=== PATIENT | male | born 1950 | race Caucasian/White ===

== ENCOUNTER 2018-04-05 05:37 | Inpatient (IN) ==
[2018-04-05] MEDS ORDERED: Dextrose 50% in Water 50 ML Vial IV.PUSH PRN ×2 (06:42→12:16)
[2018-04-05] MEDS ORDERED: Insulin Regular (For Infusion) 100 UNIT in Sodium Chlor 0.9% Inj 99 ML IV.CONT PRN ×2 (06:42→12:16)
[2018-04-05] MEDS ORDERED: ceFAZolin 1 GM Premix Inj 0 GM/0 ML PIGGYBACK IV.SIG ONE (06:44)
[2018-04-05] MEDS ORDERED: Heparin - SQ 10,000 UNITS/ML Vial ONE ×2 (06:45)
[2018-04-05] MEDS ORDERED: MethylPREDNISolone Sod Succinate Inj 125 MG/2 ML Vial ONE (06:45)
[2018-04-05] MEDS ORDERED: Sodium Chloride 0.9% Irr Bot 500 ML, ceFAZolin Inj 500 MG IRRIGATION SCH ×2 (06:45)
[2018-04-05] MEDS ORDERED: Sodium Chlor 0.9% Inj 77.5 ML, Papaverine Inj 60 MG, Nitroglycerin Inj 100 MCG, dilTIAZ... IRRIGATION SCH ×3 (06:45)
[2018-04-05] MEDS ORDERED: Chlorhexidine 4% Topical 120 APPLIC/120 ML Bottle TOPICAL SCH (06:45)
[2018-04-05] MEDS ORDERED: ceFAZolin 2 GM Premix Inj 2 GM/50 ML PIGGYBACK IV.SIG SCH (07:00)
[2018-04-05] MEDS ORDERED: fentaNYL Citrate Inj 250 MCG/5 ML Ampul ONE (07:04)
[2018-04-05] MEDS ORDERED: Midazolam Inj 5 MG/ML 1 ML Vial ONE (07:04)
[2018-04-05] MEDS ORDERED: Chlorhexidine Gluconate 2% 1 Pack (2 Cloths) TOPICAL ONE (07:15)
[2018-04-05] MEDS ORDERED: Metoprolol Tartrate 25 MG Tablet PO ONE (07:15)
[2018-04-05] MEDS ORDERED: Sodium Chlor 0.9% Inj 500 ML IV.CONT ONE (07:15)
[2018-04-05] MEDS ORDERED: Cardioplegic Irr Soln 2,000 ML IRRIGATION ONE (07:21)
[2018-04-05] MEDS ORDERED: Albumin Human 25% Inj 50 ML IV.SIG ONE (07:22)
[2018-04-05] MEDS ORDERED: Potassium Chloride Inj 40 MEQ/20 ML Vial ONE (07:23)
[2018-04-05] MEDS ORDERED: Calcium Chloride Inj 1 GM/10 ML Syringe ONE (07:24)
[2018-04-05] MEDS ORDERED: Heparin 10,000 UNITS/10 ML Vial (for IV use) ONE (07:25)
[2018-04-05] MEDS ORDERED: ceFAZolin 1 GM Premix Inj 1 GM/50 ML PIGGYBACK IV.SIG ONE (11:59)
[2018-04-05] MEDS ORDERED: Magnesium Sulfate Inj 2 GM in Sodium Chlor 0.9% Inj 96 ML IV.SIG PRN ×4 (12:16)
[2018-04-05] MEDS ORDERED: Metoprolol Inj 5 MG/5 ML Vial IV.PUSH PRN (12:16)
[2018-04-05] MEDS ORDERED: Calcium Chloride Inj 1 GM in Sodium Chlor 0.9% Inj 100 ML IV.SIG PRN (12:16)
[2018-04-05] MEDS ORDERED: Clevidipine Inj 25 MG/50 ML VIAL IV.CONT PRN (12:16)
[2018-04-05] MEDS ORDERED: RESP: Racemic Epinephrine 2.25% 0.5 ML Neb NEB PRN (12:16)
[2018-04-05] MEDS ORDERED: Potassium Chlor 20 mEq Premix 20 MEQ/100 ML PIGGYBACK IV.SIG PRN ×3 (12:16)
[2018-04-05] MEDS ORDERED: Calcium Chloride Inj 1 GM/10 ML Syringe IV.PUSH PRN (12:16)
[2018-04-05] MEDS ORDERED: Post-op Orders (for Pharmacy) OTHER STA (12:16)
[2018-04-05] MEDS ORDERED: Dexmedetomidine Inj 200 MCG in Sodium Chlor 0.9% Inj 48 ML IV.CONT PRN (12:16)
[2018-04-05] MEDS ORDERED: Albumin Human 5% Inj 250 ML IV.SIG PRN (12:16)
--- NOTE | 2018-04-05 12:26 | P.OP ---
- Preoperative Diagnosis (1) CAD (coronary artery disease) (2) Unstable angina Postoperative Diagnosis: same Date of procedure: 04/05/18 Procedure: CABG x 4 MORALES to LAD - fair SVG to D1 - poor SVG to OM2 - fair SVG to PLB - fair EVH Anesthesia: GURU Surgeon: Mirian Lazo MD Industrial Relations Manager: Goldie Singletary Pathology: none sent Operation and Findings: The risks, benefits, complications, treatment options, and expected outcomes were discussed with the patient. The possibilities of reaction to medication, pulmonary aspiration, perforation of viscus, bleeding, recurrent infection, the need for additional procedures, failure to diagnose a condition, and creating a complication requiring transfusion or operation were discussed with the patient. The patient concurred with the proposed plan, giving informed consent. The site of surgery properly noted/marked. The patient was taken to Operating Room, identified as Nirav Oliva and the procedure verified as CABG, EVH, FRANCO. A Time Out was held and the above information confirmed. Standard monitoring lines and Swift catheter were placed. General anesthesia was induced. The patient was prepped and draped in a sterile fashion. A median sternotomy was performed and electrocautery was used to obtain hemostasis. The left internal mammary artery was procured as a pedicle from the 7th rib to the 1st rib in the usual manner. Simultaneously left greater saphenous vein was procured from the left leg using a minimally invasive endoscopic technique. The vein was prepared for anastomosis and the leg wound was irrigated and closed in 2 layers. The pericardium was opened and a pericardial sling was created using interrupted 0 silk sutures. The patient was heparinized for cardiopulmonary bypass and the distal mammary pedicle was instrumented for anastomosis. The heart was instrumented for cardiopulmonary bypass in the usual manner. Antegrade blood cardioplegia was employed. The patient was placed on cardiopulmonary bypass. An aortic cross-clamp was applied and the heart was arrested using cold blood cardioplegia. Antegrade cardioplegia was administered after he each anastomosis. After adequate arrest, the distal right coronary circulation was investigated and the PLB was opened with a Christian blade and found to be a 1 millimeter diffusely diseased fair target. Saphenous vein was approximated to the PLB artery using a running 7 0 Prolene suture. The graft was measured for length and orientation and the proximal anastomosis was constructed to the ascending aorta using a running 5 0 Prolene suture after creating an aortotomy with a 4 millimeter punch. The 2nd circumflex marginal artery was then opened with a Christian blade and found to be a 1 millimeter fair target. Saphenous vein was approximated to the OM2 artery using a running 7 0 Prolene suture. The graft was measured for length and orientation and the proximal anastomosis was constructed to the ascending aorta using a running 5 0 Prolene suture after creating an aortotomy with a 4 millimeter punch. The 1st diagonal artery was then opened with a Christian blade and found to be a <1 millimeter poor target. Saphenous vein was approximated to the D1 artery using a running 7 0 Prolene suture. The graft was measured for length and orientation and was suspended from the pericardium. The distal LAD was opened with a Christian blade and found to be a 1 millimeter fair target. The left internal mammary artery was approximated to the LAD using a running 7 0 Prolene suture. The pedicle was attached to the epicardium using interrupted 5 0 silk suture. The patient was systemically rewarmed and received a hotshot dose of warm blood cardioplegia. The aorta was vented and the proximal anastomosis to the D1 graft was accomplished using a running 5 0 Prolene suture after creating an aortotomy was a 4 millimeter punch. The cross-clamp was removed and all proximal and distal anastomoses were examined for hemostasis. Temporary atrial pacing on wires were positioned and brought out through the skin in the usual manner. The patient was paced at 80 beats per minute and weaned from cardiopulmonary bypass. Protamine was given. There was no adverse reaction. Decannulation was carried out without incident. Wound was checked for hemostasis which was obtained using electrocautery. A 36 Mongolian mediastinal and 32 Mongolian left pleural chest tubes were placed and secured to the skin with 0 silk suture. The sternum was closed with stainless steel wire. The fascia was closed with 1. PDS. The subcutaneous tissue was closed using a running 2-0 Vicryl suture. The skin was closed with 4-0 Monocryl. Sterile dressings were placed. At the end of the operation, all sponge, instruments, and needle counts were correct. The patient was transferred to the CVICU in stable condition. Findings: diffusely calcified vessels with relatively small distal targets XC: 84 min CPB: 92 min Drains: mediastinal x 1 pleural x1 Complications: none Pacing Wires: 2 atrial
--- NOTE | 2018-04-05 13:31 | XR ---
EXAM DATE: 04/05/2018 1:23 PM EST AGE/SEX: 67 years / Male INDICATIONS: Post op cabg. CLINICAL DATA: This is the patient's initial encounter. Patient reports that signs and symptoms have been present for 1 day and indicates a pain score of Nonresponsive. MEDICAL/SURGICAL HISTORY: Diabetes. Myocardial infarction. Hypertension. None. [place] [facility] [place]. . FINDINGS: The endotracheal tubes in good position. There is a right IJ central line in good position. The patient has a left-sided chest tube. There is no pneumothorax. There are minimal atelectatic mad[place] ges in the left lung base. The patient is post median sternotomy. CONCLUSION: Stable postoperative chest. Electronically signed by: John Paul Garcia MD 04/05/2018 1:30 PM EST
[2018-04-05] MEDS ORDERED: RASS Change Order OTHER ONE (14:00)
[2018-04-05] MEDS: Mupirocin 2% Nasal Oint Topical Syringe EACH NARE SCH ×2 (14:21→21:25)
[2018-04-05] MEDS: Amiodarone 200 MG Tablet PO SCH ×2 (14:39→21:26)
[2018-04-05] MEDS: oxyCODONE/Acetaminophen 10/325 Tablet PO PRN (14:39)
[2018-04-05] MEDS: fentaNYL Citrate Inj 100 MCG/2 ML Ampul IV.PUSH PRN ×2 (14:54→17:01)
--- NOTE | 2018-04-05 15:58 | P.PNCV ---
- Note Subjective/Hospital Course: 67/ male hx of CAD s/p PCI , presented to Dr Herman having developed crescendo angina. He had a NSTEMI following LHC and saw Dr Funk for possible CABG. He was discharged with medical therapy, target vessels were on smaller size. LHC shoed EF 40% multivessel coronary disease PMH CAD, DM, HTN, HLP, interstitial lung disease, ischemic cardiomyopathy, NSTEMI, hx pancreatic mass , stenosis of right carotid artery 04/05 pt electively admitted for surgery Date of procedure: 04/05/18 Procedure: CABG x 4 MORALES to LAD - fair SVG to D1 - poor SVG to OM2 - fair SVG to PLB - fair EVH Objective: Vital Signs - 24 hr 04/05/18 06:42 04/05/18 12:45 04/05/18 12:46 Temperature 97.9 F 97.6 F Pulse Rate 56 L 66 Respiratory Rate 20 16 16 Blood Pressure 118/63 100/62 Pulse Oximetry 97 99 04/05/18 13:00 04/05/18 14:00 04/05/18 14:07 Temperature 97.9 F 98.1 F Pulse Rate 79 78 Respiratory Rate 17 17 Blood Pressure 125/77 129/78 Pulse Oximetry 97 98 99 04/05/18 14:17 Temperature 97.6 F Pulse Rate Respiratory Rate Blood Pressure Pulse Oximetry Labs: Laboratory Results - last 12 hr 04/05/18 04/05/18 06:16 06:38 POC Glucose 102 Blood Type A Positive Antibody Screen Negative MTS Gel Crossmatch See Detail
--- NOTE | 2018-04-05 16:03 | P.DCO ---
- Diagnosis (1) CAD (coronary artery disease) Status: Acute (2) Unstable angina Status: Acute (3) S/P CABG x 4 Status: Acute (4) Hyperlipidemia Status: Chronic (5) Hypertension Status: Chronic (6) Interstitial lung disease Status: Chronic - Home Health Nursing Order: Medical education, Signs/symptoms of disease process, Diabetic education , Wound care and dressing changes, Nursing assessment with vital signs Instructions: Heart and Vascular Surgery patients *Special attention to sternal dressing Mandatory frequency Assess and evaluation, 4 days in a row The next week 3X week 2 times a week for 4 weeks 1 time a week for 5 weeks Schedule Heart and Vascular patients for full 60 day certification period Initial visit Review Open Heart Surgery Discharge Instructions (Sternal precautions, Activity, Elastic hose, Incision care, Driving, Incentive spirometry, Smoking, [place], Work and other) Need Betadine to paint incision Medication reconciliation Importance of follow up care/ check on appointments Make calendar record temperature daily When to call [facility] nurse, review instructions, phone list Incentive Spirometry, demonstration Visit 1- Begin discharge instruction for patient family and/ or caregiver using teach back method- Signs and symptoms of infection Disease characteristics Medicines and side effects Foods and nutrition/ appetite Infection control/ hand washing/ hygiene Visit 2- Continue teaching Discharge instructions- include additional information on smoking cessation , sternal dressing (sternal vac) Visit 3- Continue teaching- Cough and deep breathing, incision monitoring. Choose my plate Visit 4- Continue teaching- Discuss limitations Discuss how they are feeling Discuss progress toward goals Remaining visits- continue teaching and monitoring For any questions please call : Monday 8am-5pm Heart & Vascular Surgery Office ( Dr. Ch & Dr. Lazo), After Hours / Nights (5pm -8am) Weekends and Holidays Please call [facility] Cardiac Intermediate Care Unit (CIC) Charge Nurse PREVENA Single Use Negative Wound Therapy System Caregiver Instruction Sheet 1. A Prevena dressing system was applied to the chest incision during surgery , to promote wound healing. It works via a suction device (negative pressure wound therapy) to remove low to moderate levels of exudate (drainage) and infectious materials. We recommend that the device stay in place for up to seven days, from day of surgery. 2. Day of Surgery___// Day of Removal ____04/12/18 3. The dressing should only be removed by a health career development director. Please arrange removal of device to coincide with Home Health visit and or with Nursing staff at Rehab 4. If skin reddening or irritation of skin occurs, or excessive drainage, please notify the Cardiovascular Surgeons office at [phone]. 5. Light showering is permissible; however the pump should be disconnected and placed in safe location, where it will not get wet. The dressing should not be exposed to direct spray or submerged in water. No bath tub / shower only. Ensure the end of the tubing attached to the dressing is facing down so that water does not enter the top of the tube. 6. To remove Prevena dressing: press purple button to turn off device / remove the suction. Then disconnect the tubing from the pump. The fixation strips should be stretched away from the skin and the dressing lifted at one corner and peeled back until it has been fully removed. 7. After removal, it is ok to shower daily using liquid dial soap and clean wash cloth, rinse and pat dry, and leave incision open to air dry. For any concerns regarding Prevena dressing, and or wounds, please contact Trang Salvador, patient navigator at [phone] or notify the Cardiovascular Surgeons office at [phone]. Incentive spirometry Q1 hr x 10, while awake, also use acapella device hourly whole awake Sternal Breast Bone Precautions: NO pushing or pulling, ( pt must use sternal pillow to support chest with all activities and with coughing ( takes up to 3 months breast bone to heal ) Daily incision care: ok to shower daily, no tub bath. Wash all incisions with liquid dial soap, clean wash cloth to each site, rinse and pat dry. Observe for any signs of infection, such as drainage which is dark yellow, griffith, green or foul smelling. Immediately report to the surgeon any drainage from the chest incision, or legs, and for any abnormal drainage from the chest tube sites. Notify surgeon if any temp >101.5 degrees F. When specialty dressing removed/ or if you do not have one, continue to shower daily as above, then rinse and pat incision dry and paint with betadine daily x 5 days. Allow steri strips to fall off if you have any. Avoid lotions, creams, salves, oils, etc. for the first month Please see attached forms for additional instructions regarding post Open Heart specialty wound vacuum dressings. SCOTT or Prevena , Dressing to be removed by Nursing staff on For Dr. Lazo patients , please obtain CBC, BMP, PA & Lat CXR in 2 weeks, results to Dr. Lazo ( prescription will be given) ( ) (Tele: [phone]) , F/U appointment: as per [place] instructions: PCP in 2 weeks, CV surgeon 2 weeks, Oil Separator 3-4 weeks For any questions regarding incisions/ dressing / meds / post op care or above Symptoms, Monday 8am-5pm Heart & Vascular Surgery Office ( Dr. Ch & Dr. Lazo), After Hours / Nights (5pm -8am) Weekends and Holidays Please call [facility] Cardiac Intermediate Care Unit (CIC) Charge Nurse - Case Management Consult Case Management Consult-Home Health: Yes - Certification I have seen patient Nirav Oliva on 04/05/18. My clinical findings support the need for the requested home health care services because: Deconditioned with increased weakness I certify that my clinical findings support that this patient is homebound because: Post-op weakness
[2018-04-05] MEDS ORDERED: traZODone 50 MG Tablet PO PRN (21:00)
[2018-04-05] MEDS: ceFAZolin 1 GM Premix Inj 1 GM/50 ML PIGGYBACK IV.SIG SCH (21:24)
[2018-04-05] MEDS: Dorzolamide-Timolol 2/0.5% Opth Drops 10 ML Bottle EACH EYE SCH (21:25)
[2018-04-06] MEDS: fentaNYL Citrate Inj 100 MCG/2 ML Ampul IV.PUSH PRN ×2 (00:45→06:24)
[2018-04-06] MEDS: ceFAZolin 1 GM Premix Inj 1 GM/50 ML PIGGYBACK IV.SIG SCH ×3 (04:20→20:17)
[2018-04-06 04:43] LABS: Hematocrit 32.8 % (39.0-51.0); Hemoglobin 11.1 gm/dL (13.0-17.0); Mean Corpuscular Hemoglobin 32.5 pg (27.0-34.0); Mean Corpuscular Volume 95.5 fL (80.0-100.0); Mean Platelet Volume 8.3 fL (7.0-11.0); Platelet Count 202 th/mm3 (150-450); Red Blood Count 3.43 mil/mm3 (4.50-5.90); Red Cell Distribution Width 13.4 % (11.6-17.2); White Blood Count 15.6 th/mm3 (4.0-11.0)
[2018-04-06 05:04] LABS: Anion Gap 8 meq/L (5-15); Blood Urea Nitrogen 20 mg/dL (7-18); Calcium 7.5 mg/dL (8.5-10.1); Carbon Dioxide 22.6 meq/L (21.0-32.0); Chloride 109 meq/L (98-107); Glomerular Filtration Rate Greater Than 89 mL/min (>89); Glucose,Random 101 mg/dL (74-106); Magnesium 2.2 mg/dL (1.5-2.5); Potassium 4.5 meq/L (3.5-5.1); Sodium 140 meq/L (136-145)
[2018-04-06] MEDS: Amiodarone 200 MG Tablet PO SCH ×2 (06:24→23:19)
--- NOTE | 2018-04-06 06:36 | XR ---
EXAM DATE: 04/06/2018 5:58 AM EST AGE/SEX: 67 years / Male INDICATIONS: S/P CABG. CLINICAL DATA: This is the patient's subsequent encounter. Patient reports that signs and symptoms h ave been present for 2 days and indicates a pain score of Nonresponsive. MEDICAL/SURGICAL HISTORY: . Diabetes. Myocardial infarction. Hypertension None. COMPARISON: [facility] – [place], CHEST 1V SINGLE AP, 04/05/2018. . FINDINGS: Portable AP view of the chest demonstrates cardiac silhouette size at the upper limits for normal in this patient post median sternotomy. Right IJ line and left chest tube remain present. The endotrache al tube and nasogastric tube have been removed. There is mild bibasilar airspace opacity, left greate r than right. No pneumothorax or pleural effusion is identified. CONCLUSION: 1. Left chest tube remains present and no pneumothorax is identified. 2. There is persistent mild airspace opacity at both lung bases, left greater than right. This could represent atelectasis or consolidation. Electronically signed by: Kp Hines MD 04/06/2018 6:35 AM EST
[2018-04-06] MEDS ORDERED: Sod Phosphate/Sod Biphosphate (Adult) Enema 133 ML Bottle RECTAL PRN (08:47)
[2018-04-06] MEDS ORDERED: Bisacodyl 10 MG Supp RECTAL PRN (08:47)
[2018-04-06] MEDS ORDERED: Dextrose 50% in Water 50 ML Vial IV.PUSH PRN (08:47)
[2018-04-06] MEDS ORDERED: Multivitamin/Minerals Therapeutic Tablet PO SCH (09:00)
[2018-04-06] MEDS ORDERED: Insulin Detemir Inj 1,000 UNIT/10 ML Vial SQ ONE (09:30)
--- NOTE | 2018-04-06 09:36 | P.PNCV ---
- Note Subjective/Hospital Course: 67/ male hx of CAD s/p PCI , presented to Dr Herman having developed crescendo angina. He had a NSTEMI following C and saw Dr Funk for possible CABG. He was discharged with medical therapy, target vessels were on smaller size. LHC shoed EF 40% multivessel coronary disease PMH CAD, DM, HTN, HLP, interstitial lung disease, ischemic cardiomyopathy, NSTEMI, hx pancreatic mass , stenosis of right carotid artery 04/05 pt electively admitted for surgery Date of procedure: 04/05/18 Procedure: CABG x 4 MORALES to LAD - fair SVG to D1 - poor SVG to OM2 - fair SVG to PLB - fair EVH extubated last evening 2500 crystalloid, 500cc cell saver, 1000cc EBL 04/06 up in chair, pain controlled pulm toileting ASA, statin , hold BB prolonged [place] interval and some junctional rhythm weaned off insulin gtt, start levemir keep chest tube in Objective: Vital Signs - 24 hr 04/05/18 12:45 04/05/18 12:46 04/05/18 13:00 Temperature 97.6 F Pulse Rate 66 Respiratory Rate 16 16 Blood Pressure 100/62 Pulse Oximetry 99 97 04/05/18 14:00 04/05/18 14:07 04/05/18 14:17 Temperature 97.9 F 98.1 F 97.6 F Pulse Rate 79 78 Respiratory Rate 17 17 Blood Pressure 125/77 129/78 Pulse Oximetry 99 99 04/05/18 16:00 04/05/18 16:35 04/05/18 17:22 Temperature Pulse Rate 83 Respiratory Rate 18 18 20 Blood Pressure Pulse Oximetry 04/05/18 18:07 04/05/18 18:18 04/05/18 19:00 Temperature 98.3 F Pulse Rate 87 Respiratory Rate 16 16 18 Blood Pressure 110/71 Pulse Oximetry 98 04/05/18 22:07 04/05/18 23:00 04/06/18 00:42 Temperature 99.2 F 98.6 F Pulse Rate 95 H 97 H Respiratory Rate 18 18 Blood Pressure 108/71 Pulse Oximetry 97 98 04/06/18 03:00 04/06/18 04:00 04/06/18 04:22 Temperature 99.0 F Pulse Rate 97 H 99 H 93 H Respiratory Rate 20 18 Blood Pressure 105/66 Pulse Oximetry 98 04/06/18 08:00 04/06/18 08:49 Temperature 98.8 F Pulse Rate 96 H Respiratory Rate 16 Blood Pressure 128/61 Pulse Oximetry 97 96 GENERAL: A&O x 3 SKIN: Warm and dry. prevena dressing to chest , padmini wrap to left leg HEAD: Normocephalic. EYES: No scleral icterus. No injection or drainage. NECK: Supple, trachea midline. No JVD or lymphadenopathy. CARDIOVASCULAR: Regular rate and rhythm without murmurs, gallops, or rubs. occasional junctional rhythm RESPIRATORY: Breath sounds equal bilaterally. No accessory muscle use. diminished in the bases , chest tube to wall suction , no air leak / drained 440cc/ 12 hrs GASTROINTESTINAL: Abdomen soft, non-tender, nondistended. MUSCULOSKELETAL: No cyanosis, or edema. BACK: Nontender without obvious deformity. No CVA tenderness. Labs: Laboratory Results - last 12 hr 04/05/18 04/05/18 04/05/18 06:16 21:18 23:33 WBC RBC Hgb Hct MCV MCH MCHC RDW Plt Count MPV Sodium Potassium Chloride Carbon Dioxide Anion Gap BUN Creatinine Estimated GFR POC Glucose 125 H 92 Random Glucose Calcium Magnesium Blood Type A Positive Antibody Screen Negative MTS Gel Crossmatch See Detail 04/06/18 04/06/18 04/06/18 00:43 03:32 04:00 WBC 15.6 H RBC 3.43 L Hgb 11.1 L Hct 32.8 L MCV 95.5 MCH 32.5 MCHC 34.0 RDW 13.4 Plt Count 202 MPV 8.3 Sodium Potassium Chloride Carbon Dioxide Anion Gap BUN Creatinine Estimated GFR POC Glucose 92 87 Random Glucose Calcium Magnesium Blood Type Antibody Screen MTS Gel Crossmatch 04/06/18 04/06/18 04/06/18 04:00 05:35 08:19 WBC RBC Hgb Hct MCV MCH MCHC RDW Plt Count MPV Sodium 140 Potassium 4.5 Chloride 109 H Carbon Dioxide 22.6 Anion Gap 8 BUN 20 H Creatinine 0.79 Estimated GFR Greater than 89 POC Glucose 104 125 H Random Glucose 101 Calcium 7.5 L Magnesium 2.2 Blood Type Antibody Screen MTS Gel Crossmatch Result Diagrams: 04/06/18 04:00 04/06/18 04:00 Telemetry: SR> junctional OOB, ambulate with PT pulm toileting prolonged [place] rhythm, intermittent junctional has A wires , hold on starting BB for now keep chest tubes in pt was on xarelto at home transfer to [facility]
[2018-04-06] MEDS: Insulin NovoLOG Aspart Correctional Sugar Inj SQ SCH ×4 (10:20→23:40)
--- NOTE | 2018-04-06 10:22 | P.DIET ---
Nutritional Evaluation Screening comments: MDC for diet education s/p CABG x 4 on 04/05 received. Patient Navigator to provide education. Consult RD if complexities with diet education arise.
[2018-04-06] MEDS: oxyCODONE/Acetaminophen 10/325 Tablet PO PRN ×3 (13:09→23:18)
[2018-04-06] MEDS: Mupirocin 2% Nasal Oint Topical Syringe EACH NARE SCH ×2 (13:11→23:42)
--- NOTE | 2018-04-06 14:00 | ECG ---
Date Performed: 04/06/2018 Time Performed: 04:44:36 PTAGE: 67 years EKG: Sinus rhythm with marked first degree heart block Possible left anterior fascicular block Possible anterior infar ct - age undetermined Lateral T wave changes are nonspecific Clinical correlation is recommended Abno rmal ECG PREVIOUS TRACING : 03/26/2018 13.23 DOCTOR: Noam Solis Interpretating Date/Time 04/06/2018 13:55:01
[2018-04-06] MEDS: Dorzolamide-Timolol 2/0.5% Opth Drops 10 ML Bottle EACH EYE SCH ×2 (16:24→23:42)
[2018-04-06] MEDS: Metoprolol Tartrate 25 MG Tablet PO SCH ×2 (16:24→23:18)
[2018-04-06] MEDS: Insulin Detemir Inj 1,000 UNIT/10 ML Vial SQ SCH (23:39)
[2018-04-06] MEDS: Docusate Sodium 100 MG Capsule PO SCH (23:42)
[2018-04-07] MEDS: Insulin NovoLOG Aspart Correctional Sugar Inj SQ SCH ×5 (03:50→20:41)
[2018-04-07] MEDS: ceFAZolin 1 GM Premix Inj 1 GM/50 ML PIGGYBACK IV.SIG SCH (03:51)
[2018-04-07 07:01] LABS: Eos % (Auto) 0.1 % (0.0-4.0); Hematocrit 29.8 % (39.0-51.0); Hemoglobin 10.3 gm/dL (13.0-17.0); Mean Corpuscular HGB Conc 34.7 % (32.0-36.0); Mean Corpuscular Volume 95.1 fL (80.0-100.0); Mean Platelet Volume 8.3 fL (7.0-11.0); Mono # (Auto) 0.9 th/mm3 (0.0-0.9); Mono % (Auto) 6.3 % (0.0-8.0); Neut # (Auto) 12.9 th/mm3 (1.8-7.7); Neut % (Auto) 86.6 % (16.0-70.0); Platelet Count 187 th/mm3 (150-450); Red Blood Count 3.13 mil/mm3 (4.50-5.90); Red Cell Distribution Width 13.5 % (11.6-17.2); White Blood Count 14.9 th/mm3 (4.0-11.0)
[2018-04-07 07:26] LABS: Anion Gap 7 meq/L (5-15); Blood Urea Nitrogen 19 mg/dL (7-18); Carbon Dioxide 27.8 meq/L (21.0-32.0); Chloride 103 meq/L (98-107); Glomerular Filtration Rate Greater Than 89 mL/min (>89); Glucose,Random 109 mg/dL (74-106); Magnesium 2.4 mg/dL (1.5-2.5); Potassium 4.4 meq/L (3.5-5.1); Sodium 138 meq/L (136-145)
--- NOTE | 2018-04-07 08:40 | P.PNCV ---
- Note Subjective/Hospital Course: 67/ male hx of CAD s/p PCI , presented to Dr Herman having developed crescendo angina. He had a NSTEMI following C and saw Dr Funk for possible CABG. He was discharged with medical therapy, target vessels were on smaller size. LHC shoed EF 40% multivessel coronary disease PMH CAD, DM, HTN, HLP, interstitial lung disease, ischemic cardiomyopathy, NSTEMI, hx pancreatic mass , stenosis of right carotid artery 04/05 pt electively admitted for surgery Date of procedure: 04/05/18 Procedure: CABG x 4 MORALES to LAD - fair SVG to D1 - poor SVG to OM2 - fair SVG to PLB - fair EVH extubated last evening 2500 crystalloid, 500cc cell saver, 1000cc EBL 04/06 up in chair, pain controlled pulm toileting ASA, statin , hold BB prolonged [place] interval and some junctional rhythm weaned off insulin gtt, start levemir keep chest tube in 04/07 Doing well Remove chest tube today Discharge planning Objective: Vital Signs - 24 hr 04/06/18 08:49 04/06/18 09:43 04/06/18 11:45 Temperature 98.6 F Pulse Rate 76 Respiratory Rate 18 Blood Pressure 117/66 Pulse Oximetry 96 95 95 04/06/18 13:22 04/06/18 15:00 04/06/18 19:00 Temperature 98.0 F 99 F Pulse Rate 74 87 89 Respiratory Rate 18 18 20 Blood Pressure 136/63 127/99 H Pulse Oximetry 99 98 04/06/18 20:00 04/06/18 23:00 04/07/18 00:00 Temperature 99 F Pulse Rate 87 94 H Respiratory Rate 22 20 20 Blood Pressure 120/60 Pulse Oximetry 98 04/07/18 03:00 04/07/18 04:00 04/07/18 04:37 Temperature 97.8 F Pulse Rate 85 85 Respiratory Rate 18 18 16 Blood Pressure 123/64 Pulse Oximetry 99 04/07/18 07:00 04/07/18 08:03 Temperature Pulse Rate 87 94 H Respiratory Rate 16 Blood Pressure Pulse Oximetry 98 Labs: Laboratory Results - last 12 hr 04/06/18 04/07/18 04/07/18 23:25 02:20 06:38 WBC RBC Hgb Hct MCV MCH MCHC RDW Plt Count MPV Neut % (Auto) Lymph % (Auto) [place] % (Auto) Eos % (Auto) Baso % (Auto) Neut # (Auto) Lymph # (Auto) [place] # (Auto) Eos # (Auto) Baso # (Auto) WBC Differential Differential Comment Sodium Potassium Chloride Carbon Dioxide Anion Gap BUN Creatinine Estimated GFR POC Glucose 171 H 189 H 115 H Random Glucose Calcium Magnesium 04/07/18 04/07/18 06:40 06:40 WBC 14.9 H RBC 3.13 L Hgb 10.3 L Hct 29.8 L MCV 95.1 MCH 33.0 MCHC 34.7 RDW 13.5 Plt Count 187 MPV 8.3 Neut % (Auto) 86.6 H Lymph % (Auto) 7.0 L [place] % (Auto) 6.3 Eos % (Auto) 0.1 Baso % (Auto) 0.0 Neut # (Auto) 12.9 H Lymph # (Auto) 1.0 [place] # (Auto) 0.9 Eos # (Auto) 0.0 Baso # (Auto) 0.0 WBC Differential . Differential Comment Auto diff final Sodium 138 Potassium 4.4 Chloride 103 Carbon Dioxide 27.8 Anion Gap 7 BUN 19 H Creatinine 0.66 Estimated GFR Greater than 89 POC Glucose Random Glucose 109 H Calcium 8.0 L Magnesium 2.4 Result Diagrams: 04/07/18 06:40 04/07/18 06:40
[2018-04-07] MEDS: Polyethylene Glycol 3350 17 GM Packet PO SCH (09:08)
[2018-04-07] MEDS: Insulin Detemir Inj 1,000 UNIT/10 ML Vial SQ SCH ×2 (09:10→20:42)
[2018-04-07] MEDS: Mupirocin 2% Nasal Oint Topical Syringe EACH NARE SCH ×2 (09:11→20:42)
[2018-04-07] MEDS: Metoprolol Tartrate 25 MG Tablet PO SCH ×2 (09:11→20:41)
[2018-04-07] MEDS: Amiodarone 200 MG Tablet PO SCH ×2 (09:11→20:41)
[2018-04-07] MEDS: Docusate Sodium 100 MG Capsule PO SCH ×2 (09:11→20:41)
[2018-04-07] MEDS: Dorzolamide-Timolol 2/0.5% Opth Drops 10 ML Bottle EACH EYE SCH ×2 (09:12→20:42)
[2018-04-08] MEDS: Insulin NovoLOG Aspart Correctional Sugar Inj SQ SCH ×4 (08:44→21:21)
[2018-04-08] MEDS: Metoprolol Tartrate 25 MG Tablet PO SCH ×2 (08:45→21:19)
[2018-04-08] MEDS: Amiodarone 200 MG Tablet PO SCH ×2 (08:45→21:19)
[2018-04-08] MEDS: Insulin Detemir Inj 1,000 UNIT/10 ML Vial SQ SCH ×2 (08:45→21:21)
[2018-04-08] MEDS: Polyethylene Glycol 3350 17 GM Packet PO SCH (08:46)
[2018-04-08] MEDS: Dorzolamide-Timolol 2/0.5% Opth Drops 10 ML Bottle EACH EYE SCH (08:48)
[2018-04-08] MEDS: Mupirocin 2% Nasal Oint Topical Syringe EACH NARE SCH ×2 (08:48→21:21)
[2018-04-08] MEDS: Docusate Sodium 100 MG Capsule PO SCH ×2 (08:48→21:19)
--- NOTE | 2018-04-08 08:49 | P.PNCV ---
- Note Subjective/Hospital Course: 67/ male hx of CAD s/p PCI , presented to Dr Herman having developed crescendo angina. He had a NSTEMI following [facility] and saw Dr Funk for possible CABG. He was discharged with medical therapy, target vessels were on smaller size. LHC shoed EF 40% multivessel coronary disease PMH CAD, DM, HTN, HLP, interstitial lung disease, ischemic cardiomyopathy, NSTEMI, hx pancreatic mass , stenosis of right carotid artery 04/05 pt electively admitted for surgery Date of procedure: 04/05/18 Procedure: CABG x 4 MORALES to LAD - fair SVG to D1 - poor SVG to OM2 - fair SVG to PLB - fair EVH extubated last evening 2500 crystalloid, 500cc cell saver, 1000cc EBL 04/06 up in chair, pain controlled pulm toileting ASA, statin , hold BB prolonged [place] interval and some junctional rhythm weaned off insulin gtt, start levemir keep chest tube in 04/07 Doing well Remove chest tube today Discharge planning 04/08 Hemodynamically stable Awaiting BM Possible discharge in a.m. Objective: Vital Signs - 24 hr 04/07/18 09:00 04/07/18 10:00 04/07/18 11:00 Temperature 98.2 F Pulse Rate 88 88 84 Respiratory Rate 18 Blood Pressure 120/62 Pulse Oximetry 97 04/07/18 12:00 04/07/18 13:00 04/07/18 14:00 Temperature Pulse Rate 88 86 85 Respiratory Rate 16 Blood Pressure Pulse Oximetry 04/07/18 15:00 04/07/18 16:00 04/07/18 17:00 Temperature 98.4 F Pulse Rate 87 85 84 Respiratory Rate 18 Blood Pressure 124/62 Pulse Oximetry 96 04/07/18 18:00 04/07/18 19:00 04/07/18 20:00 Temperature 98.4 F Pulse Rate 84 90 86 Respiratory Rate 20 Blood Pressure 137/60 Pulse Oximetry 91 L 04/07/18 20:54 04/07/18 21:00 04/07/18 22:00 Temperature Pulse Rate 77 86 90 Respiratory Rate 18 Blood Pressure Pulse Oximetry 92 L 04/07/18 23:00 04/08/18 00:00 04/08/18 01:00 Temperature 98.4 F Pulse Rate 89 84 84 Respiratory Rate 20 Blood Pressure 120/55 L Pulse Oximetry 95 04/08/18 02:00 04/08/18 03:00 04/08/18 04:00 Temperature 97.9 F Pulse Rate 84 85 82 Respiratory Rate 20 Blood Pressure 115/57 L Pulse Oximetry 97 04/08/18 05:00 04/08/18 06:00 04/08/18 08:38 Temperature Pulse Rate 80 82 91 H Respiratory Rate 16 Blood Pressure Pulse Oximetry 95 Labs: Laboratory Results - last 12 hr 04/05/18 04/08/18 06:16 07:54 POC Glucose 176 H MTS Gel Crossmatch See Detail Result Diagrams: 04/07/18 06:40 04/07/18 06:40
[2018-04-09] MEDS: Dorzolamide-Timolol 2/0.5% Opth Drops 10 ML Bottle EACH EYE SCH ×2 (00:49→12:11)
[2018-04-09] MEDS: Polyethylene Glycol 3350 17 GM Packet PO SCH (09:32)
[2018-04-09] MEDS: Amiodarone 200 MG Tablet PO SCH (09:33)
[2018-04-09] MEDS: Docusate Sodium 100 MG Capsule PO SCH (09:33)
[2018-04-09] MEDS: Metoprolol Tartrate 25 MG Tablet PO SCH (09:33)
[2018-04-09] MEDS: Insulin NovoLOG Aspart Correctional Sugar Inj SQ SCH ×2 (09:34→12:10)
[2018-04-09] MEDS: Insulin Detemir Inj 1,000 UNIT/10 ML Vial SQ SCH (09:35)
--- NOTE | 2018-04-09 13:47 | P.DS ---
Date of admission: 04/05/18 05:37 Primary care physician: Jerry Carpenter Attending physician on discharge: Mirian Lazo Anticipated date of discharge: 04/09/18 Brief History from admission: 67/ male hx of CAD s/p PCI , presented to Dr Herman having developed crescendo angina. He had a NSTEMI following C and saw Dr Funk for possible CABG. He was discharged with medical therapy, target vessels were on smaller size. LHC shoed EF 40% multivessel coronary disease PMH CAD, DM, HTN, HLP, interstitial lung disease, ischemic cardiomyopathy, NSTEMI, hx pancreatic mass , stenosis of right carotid artery 04/05 pt electively admitted for surgery Patient update on day of discharge: pt on room air , remains in NSR VSS + BM stable for dc home DS: Diagnosis - Discharge Diagnosis (1) CAD (coronary artery disease) Status: Acute (2) Unstable angina Status: Acute (3) S/P CABG x 4 Status: Acute (4) Hyperlipidemia Status: Chronic (5) Hypertension Status: Chronic (6) Interstitial lung disease Status: Chronic DS: Medications - Discharge Medications Prescriptions: amiodarone 200 mg PO Q12HR #28 tab clopidogrel [Plavix] 75 mg PO DAILY #30 tab hydrocodone-acetaminophen [[place]] 1 tab PO Q4H #30 tab metoprolol tartrate 12.5 mg PO BID #60 tab DS: Summary Hospital Course: 04/05 pt electively admitted for surgery Date of procedure: 04/05/18 Procedure: CABG x 4 MORALES to LAD - fair SVG to D1 - poor SVG to OM2 - fair SVG to PLB - fair EVH extubated last evening 2500 crystalloid, 500cc cell saver, 1000cc EBL 04/06 up in chair, pain controlled pulm toileting ASA, statin , hold BB prolonged IL interval and some junctional rhythm weaned off insulin gtt, start levemir keep chest tube in 04/07 Doing well Remove chest tube today Discharge planning 04/08 Hemodynamically stable Awaiting BM Possible discharge in a.m. - Time Spent with Patient Total time spent providing and/or coordinating discharge services: Greater than 30 minutes - Quality: VTE Deep Vein Thrombosis/Pulmonary Embolism Present on Admission: No Exam Vital signs: Vital Signs 04/08/18 14:00 04/08/18 14:51 04/08/18 15:00 Temperature 98.6 F Pulse Rate 80 87 75 Respiratory Rate 20 Blood Pressure 117/60 Pulse Oximetry 97 04/08/18 16:00 04/08/18 17:00 04/08/18 19:00 Temperature 98.6 F Pulse Rate 88 94 H 85 Respiratory Rate 17 Blood Pressure 157/70 H Pulse Oximetry 04/08/18 20:00 04/08/18 20:19 04/08/18 21:00 Temperature Pulse Rate 78 79 Respiratory Rate Blood Pressure Pulse Oximetry 93 L 04/08/18 22:00 04/08/18 23:00 04/09/18 00:00 Temperature 98.9 F Pulse Rate 77 77 75 Respiratory Rate 18 Blood Pressure 116/59 L Pulse Oximetry 96 04/09/18 01:00 04/09/18 02:00 04/09/18 03:00 Temperature 98.0 F Pulse Rate 78 73 73 Respiratory Rate 18 Blood Pressure 116/59 L Pulse Oximetry 96 04/09/18 04:00 04/09/18 05:00 04/09/18 05:44 Temperature Pulse Rate 86 84 74 Respiratory Rate Blood Pressure Pulse Oximetry 04/09/18 07:00 04/09/18 08:00 04/09/18 09:00 Temperature 98.0 F Pulse Rate 74 72 72 Respiratory Rate 18 Blood Pressure 112/57 L Pulse Oximetry 92 L 96 04/09/18 10:00 04/09/18 11:00 Temperature 97.5 F L Pulse Rate 76 59 L Respiratory Rate 18 Blood Pressure 95/64 L Pulse Oximetry 98 Intake & Output 04/08/18 04/09/18 04/09/18 18:59 06:59 18:59 Intake Total 240 / 240 240 / 240 Output Total 500 / 500 Balance -260 / -260 240 / 240 Weight 92 kg Intake: Oral 240 / 240 240 / 240 Output: Urine 500 / 500 Other: # Voids 2 Date of Last Bowel Movement 04/08/18 04/09/18 04/09/18 # Bowel Movements 1 - Constitutional no acute distress - Routine HEENT Exam Head: Present: normocephalic, atraumatic Eye: Present: EOMI, PERRL, normal accommodation - Routine Neck Exam Present: supple, full ROM - Routine Chest/Breast/Axilla Exam Chest wall: Present: tenderness - Routine Respiratory Exam Present: CTA bilaterally Comments: faint crackles - Routine Cardiovascular Exam Present: RRR, S1, S2 - Routine Abdominal Exam Present: soft, normoactive bowel sounds - Routine Extremities Exam Present: pulses intact, normal capillary refill - Routine Skin Exam Present: intact Comments: prevena dressing to chest , incision intact to left leg - Routine Neurological Exam Present: alert, oriented X3 Results Procedures completed during hospitalization: Preoperative Diagnosis (1) CAD (coronary artery disease) (2) Unstable angina Postoperative Diagnosis: same Date of procedure: 04/05/18 Procedure: CABG x 4 MORALES to LAD - fair SVG to D1 - poor SVG to OM2 - fair SVG to PLB - fair EVH Labs on day of discharge: Labs from last 24 hours 04/09/18 04/09/18 04/08/18 11:52 07:59 20:12 POC Glucose 237 H 160 H 254 H 04/08/18 15:58 POC Glucose 130 H - Impressions ITS Impressions Chest X-Ray 04/06/18 05:00 CONCLUSION: 1. Left chest tube remains present and no pneumothorax is identified. 2. There is persistent mild airspace opacity at both lung bases, left greater than right. This could represent atelectasis or consolidation. Discharge Plan - Discharge Disposition Patient Disposition: /Home Health Service - Discharge Condition Condition: Good - Discharge Order Discharge Orders: Discharge Order (Routine); Ordered 04/09/18 Ordered By: Elle Huang - Discharge Details Anticipated Discharge Date: 04/09/18 - Physicians Team Primary Care Provider: Jerry Carpenter Attending Provider: Mirian Lazo Other Providers: Gyft,Insurance - Rxs /Orders / Referrals /Forms Prescriptions: New amiodarone 200 mg Tablet 200 mg PO Q12HR Qty: 28 RF: 0 clopidogrel [Plavix] 75 mg Tablet 75 mg PO DAILY Qty: 30 RF: 2 hydrocodone-acetaminophen [[place]] 10-325 mg Tablet 1 tab PO Q4H Qty: 30 RF: 0 insulin detemir U-100 [Levemir U-100 Insulin] 100 unit/mL Solution 5 unit subcut BID RF: 0 metoprolol tartrate 25 mg Tablet 12.5 mg PO BID Qty: 60 RF: 2 Continue aspirin [Adult Low Dose Aspirin] 81 mg Tablet,Delayed Release (Dr/Ec) 81 mg PO DAILY diclofenac sodium 75 mg Tablet,Delayed Release (Dr/Ec) 75 mg PO BID PRN (Reason: Pain) dorzolamide-timolol 22.3-6.8 mg/mL Drops 1 drp OPHTHALMIC (EYE) BID empagliflozin [Jardiance] 25 mg Tablet 25 mg PO DAILY insulin glargine [Lantus Solostar U-100 Insulin] 100 unit/mL (3 mL) Insulin Pen 30 unit SUBCUT HS linaclotide [Linzess] 145 mcg Capsule 145 mcg PO DAILY PRN (Reason: Constipation) oxycodone-acetaminophen 10-325 mg Tablet 1 tab PO Q6H PRN (Reason: Pain) simvastatin 80 mg Tablet 80 mg PO QPM trazodone 50 mg Tablet 50 mg PO HS PRN (Reason: Sleep) Discontinued candesartan 32 mg Tablet 16 mg PO DAILY isosorbide mononitrate 60 mg Tablet Extended Release 24 Hr 60 mg PO BID metoprolol succinate [Toprol XL] 50 mg Tablet Extended Release 24 Hr 50 mg PO DAILY nitroglycerin 0.4 mg Tablet, Sublingual 0.4 mg SUBLINGUAL Q5-15M PRN (Reason: Chest Pain) ranolazine [Ranexa] 1,000 mg Tablet Extended Release 12 Hr 2,000 mg PO BID rivaroxaban [Xarelto] 10 mg Tablet 2.5 mg PO BID Ambulatory Orders / Order Sets / DME: XR chest 2V PA&LAT (Routine) Timeframe: 2 Weeks Location: Determined by Patient Ordered By: Elle Huang Basic Metabolic Panel (Routine) Timeframe: 2 Weeks Location: Determined by Patient Ordered By: Elle Huang Complete Blood Count NO Diff (Routine) Timeframe: 2 Weeks Location: Determined by Patient Ordered By: Elle Huang Referrals: David Herman MD [Physician] - See Instructions ( Dr Herman's nurseShirin. Will call you with appt. Please be sure to follow up within 4 weeks of discharge.) Jerry Carpenter MD [Primary Care Provider] - See Instructions ( Your appointment has been scheduled for [04/18/18] at [3:30 PM] If you cannot make this appointment, please call the office to reschedule ) Elle Huang [ADVANCE RN PRACTITIONER] - See Instructions ( Your appointment has been scheduled for [04/26/18] at [11:45 am] If you cannot make this appointment, please call the office to reschedule ) - Discharge Instructions Patient Printed Instructions: Coronary Artery Bypass Graft (DC) Additional Instructions: PREVENA Single Use Negative Wound Therapy System Caregiver Instruction Sheet 1. A Prevena dressing system was applied to the chest incision during surgery , to promote wound healing. It works via a suction device (negative pressure wound therapy) to remove low to moderate levels of exudate (drainage) and infectious materials. We recommend that the device stay in place for up to seven days, from day of surgery. 2. Day of Surgery__04/05/18 Day of Removal ____04/12/18 3. The dressing should only be removed by a health respiratory care faculty. Please arrange removal of device to coincide with Home Health visit and or with Nursing staff at Rehab 4. If skin reddening or irritation of skin occurs, or excessive drainage, please notify the Cardiovascular Surgeons office at [phone]. 5. Light showering is permissible; however the pump should be disconnected and placed in safe location, where it will not get wet. The dressing should not be exposed to direct spray or submerged in water. No bath tub / shower only. Ensure the end of the tubing attached to the dressing is facing down so that water does not enter the top of the tube. 6. To remove Prevena dressing: press purple button to turn off device / remove the suction. Then disconnect the tubing from the pump. The fixation strips should be stretched away from the skin and the dressing lifted at one corner and peeled back until it has been fully removed. 7. After removal, it is ok to shower daily using liquid dial soap and clean wash cloth, rinse and pat dry, and leave incision open to air dry. For any concerns regarding Prevena dressing, and or wounds, please contact Trang Salvador, patient navigator at [phone] or notify the Cardiovascular Surgeons office at [phone]. Incentive spirometry Q1 hr x 10, while awake, also use acapella device hourly whole awake Sternal Breast Bone Precautions: NO pushing or pulling, ( pt must use sternal pillow to support chest with all activities and with coughing ( takes up to 3 months breast bone to heal ) Daily incision care: ok to shower daily, no tub bath. Wash all incisions with liquid dial soap, clean wash cloth to each site, rinse and pat dry. Observe for any signs of infection, such as drainage which is dark yellow, griffith, green or foul smelling. Immediately report to the surgeon any drainage from the chest incision, or legs, and for any abnormal drainage from the chest tube sites. Notify surgeon if any temp >101.5 degrees F. When specialty dressing removed/ or if you do not have one, continue to shower daily as above, then rinse and pat incision dry and paint with betadine daily x 5 days. Allow steri strips to fall off if you have any. Avoid lotions, creams, salves, oils, etc. for the first month Please see attached forms for additional instructions regarding post Open Heart specialty wound vacuum dressings. SCOTT or Prevena , Dressing to be removed by Nursing staff on __04/12/[address] Lazo patients , please obtain CBC, BMP, PA & Lat CXR in 2 weeks, results to Dr. Lazo ( prescription will be given) ( ) (Tele: [phone]) , F/U appointment: as per PA instructions: PCP in 2 weeks, CV surgeon 2 weeks, Director Of Player Personnel 3-4 weeks For any questions regarding incisions/ dressing / meds / post op care or above Symptoms, Monday 8am-5pm Heart & Vascular Surgery Office ( Dr. Ch & Dr. Lazo), After Hours / Nights (5pm -8am) Weekends and Holidays Please call [facility] Card[facility] Unit ([facility]) Charge Nurse
== END 2018-04-09 17:15 | disposition home health service (06) ==
LOC: HSDI 05:37 → HCVI 12:45 → HCPC 04-06 13:42
PROVIDERS: ADMIT Thoracic Surgery (Cardiothoracic Vascular Surgery); ATTEND Thoracic Surgery (Cardiothoracic Vascular Surgery)